=== PATIENT | male | born 1950 | race Caucasian/White ===

== ENCOUNTER 2018-03-13 09:20 | Outpatient (CLI) | payer OTHER ==
[~2018-03-13 09:20] MED LIST: ATIVAN2 MG; AVAPRO75 MG; GEMFIBROZIL600 MG; JANUMET 50-501 UDTAB; SYNTHROID50 MCG
== END 2018-03-13 09:25 | disposition home or self-care (01) ==
LOC: RAD 09:20
DX: N20.0 Calculus of kidney (principal); R31.9 Hematuria, unspecified

== ENCOUNTER 2018-04-16 07:22 | Outpatient (CLI) | payer OTHER | END 2018-04-16 07:24 | disposition home or self-care (01) | LOC: MAMO-SONO 07:22 | DX: N60.11 Diffuse cystic mastopathy of right breast (principal); N60.12 Diffuse cystic mastopathy of left breast ==

== ENCOUNTER 2019-01-28 07:10 | Outpatient (CLI) | payer OTHER | END 2019-01-28 07:56 | disposition home or self-care (01) | LOC: TOM 07:10 | DX: R10.84 Generalized abdominal pain (principal) | CPT/HCPCS: 74177; Q9965 ==

== ENCOUNTER 2019-04-29 07:06 | Outpatient (CLI) | payer OTHER | END 2019-04-29 07:10 | disposition home or self-care (01) | LOC: SONOGRAMA 07:06 | DX: N18.1 Chronic kidney disease, stage 1 (principal); N20.0 Calculus of kidney; N28.1 Cyst of kidney, acquired; E11.22 Type 2 diabetes mellitus with diabetic chronic kidney disease; I13.10 Hypertensive heart and chronic kidney disease without heart failure, with stage 1 through stage 4 chronic kidney disease, or unspecified chronic kidney disease ==

== ENCOUNTER 2019-10-28 07:33 | Outpatient (CLI) | payer OTHER | END 2019-10-28 08:18 | disposition home or self-care (01) | LOC: TOM 07:33 | PROVIDERS: ATTEND Internal Medicine | DX: K57.90 Diverticulosis of intestine, part unspecified, without perforation or abscess without bleeding (principal); E03.8 Other specified hypothyroidism; E04.2 Nontoxic multinodular goiter ==

== ENCOUNTER 2020-06-22 13:26 | Inpatient (IN) | payer OTHER ==
[~2020-06-22] VITALS: Ht 165.1 cm; Wt 104.8 kg
[2020-06-23] MEDS ORDERED: CANDESARTAN CIL32 MG (08:00)
[2020-06-23] MEDS ORDERED: ATORVASTATIN CA10 MG (08:00)
[2020-06-23] MEDS ORDERED: SERTRALINE HCL50 MG (08:01)
[2020-06-23] MEDS ORDERED: INDAPAMIDE2.5 MG (08:01)
[2020-06-23] MEDS ORDERED: GABAPENTIN400 MG (08:01)
== END 2020-06-25 10:49 | disposition home or self-care (01) | DRG 603 ==
LOC: SURG 13:26
PROVIDERS: ADMIT Colon & Rectal Surgery; ATTEND Colon & Rectal Surgery
PROC: 0HDKXZZ Extraction of Right Lower Leg Skin, External Approach (ICD-10-PCS; principal; 2020-06-23 11:15)
DX: L03.115 Cellulitis of right lower limb (principal); E11.52 Type 2 diabetes mellitus with diabetic peripheral angiopathy with gangrene; E11.40 Type 2 diabetes mellitus with diabetic neuropathy, unspecified; E11.319 Type 2 diabetes mellitus with unspecified diabetic retinopathy without macular edema; Z79.4 Long term (current) use of insulin; I10 Essential (primary) hypertension; E78.5 Hyperlipidemia, unspecified; Z20.822 Contact with and (suspected) exposure to COVID-19

== ENCOUNTER → 2020-11-16 06:35 | Outpatient (CLI) | payer OTHER ==
[~2020-11-16 06:35] MED LIST changes: +ATORVASTATIN CA10 MG; +CANDESARTAN CIL32 MG; +GABAPENTIN400 MG; +INDAPAMIDE2.5 MG; +SERTRALINE HCL50 MG
== END | disposition home or self-care (01) ==
LOC: LAB 06:35
PROVIDERS: ATTEND Urology
DX: N40.0 Benign prostatic hyperplasia without lower urinary tract symptoms (principal); R97.20 Elevated prostate specific antigen [PSA]; R31.1 Benign essential microscopic hematuria

== ENCOUNTER 2020-11-16 07:18 | Outpatient (CLI) | payer OTHER | END 2020-11-16 07:20 | disposition home or self-care (01) | LOC: SONOGRAMA 07:18 → MAMO-SONO 08:45 | PROVIDERS: ATTEND Urology | DX: N40.0 Benign prostatic hyperplasia without lower urinary tract symptoms (principal) ==

== ENCOUNTER 2021-02-15 09:00 | Outpatient (CLI) | payer OTHER | END 2021-02-15 09:05 | disposition home or self-care (01) | LOC: PPH VACUNA 09:00 | PROVIDERS: ATTEND Emergency Medicine Pediatric Emergency Medicine | DX: Z23 Encounter for immunization (principal) ==

== ENCOUNTER 2021-02-25 07:15 | Outpatient (CLI) | payer OTHER | END 2021-02-25 07:18 | disposition home or self-care (01) | LOC: MAMO-SONO 07:15 | DX: N60.11 Diffuse cystic mastopathy of right breast (principal); N60.12 Diffuse cystic mastopathy of left breast ==

== ENCOUNTER 2021-03-16 06:22 | Day surgery (SDC) | payer OTHER | END 2021-03-16 10:25 | disposition home or self-care (01) | LOC: AMB-ENDOS 06:22 | PROVIDERS: ATTEND Colon & Rectal Surgery | DX: D12.0 Benign neoplasm of cecum (principal); D12.3 Benign neoplasm of transverse colon; D12.4 Benign neoplasm of descending colon; D12.5 Benign neoplasm of sigmoid colon; K62.1 Rectal polyp; K64.8 Other hemorrhoids; Z20.822 Contact with and (suspected) exposure to COVID-19; Z12.11 Encounter for screening for malignant neoplasm of colon ==

== ENCOUNTER 2021-06-01 10:24 | Outpatient (CLI) | payer OTHER | END 2021-06-01 10:36 | disposition home or self-care (01) | LOC: SONOGRAMA 10:24 | PROVIDERS: ATTEND Colon & Rectal Surgery | DX: E04.1 Nontoxic single thyroid nodule (principal) ==

== ENCOUNTER 2021-08-02 06:44 | Outpatient (CLI) | payer OTHER | END 2021-08-02 07:16 | disposition home or self-care (01) | LOC: TOM 06:44 | PROVIDERS: ATTEND Internal Medicine | DX: G30.9 Alzheimer's disease, unspecified (principal) ==

== ENCOUNTER 2021-09-20 07:03 | Outpatient (CLI) | payer OTHER | END 2021-09-20 07:11 | disposition home or self-care (01) | LOC: TOM 07:03 | PROVIDERS: ATTEND Internal Medicine | DX: M51.9 Unspecified thoracic, thoracolumbar and lumbosacral intervertebral disc disorder (principal) ==

== ENCOUNTER → 2021-12-28 11:41 | Outpatient (CLI) | payer OTHER | END | disposition home or self-care (01) | LOC: LAB 11:41 | PROVIDERS: ATTEND Radiology Diagnostic Radiology | DX: R10.9 Unspecified abdominal pain (principal) ==

== ENCOUNTER 2021-12-29 06:14 | Outpatient (CLI) | payer OTHER | END 2021-12-29 06:16 | disposition home or self-care (01) | LOC: MRI 06:14 | PROVIDERS: ATTEND Internal Medicine Cardiovascular Disease | DX: C71.9 Malignant neoplasm of brain, unspecified (principal) | CPT/HCPCS: 70553; Q9965; 70552 ==